=== PATIENT | male | born 1960 | race Caucasian/White ===

== ENCOUNTER 2018-01-18 18:36 | Emergency (ER) | payer OTHER ==
--- NOTE | 2018-01-19 00:43 | ER ---
HPI: A 57-year-old male here with concerns about his blood pressure being elevated. He has been checking it recently and he got a reading today in the 180s/120. The patient states he feels okay. He has had some mild occasional headaches, but did not think much of it, but now he is concerned that his blood pressure could be causing his headache. The patient is on medications for hypertension that include amlodipine 5 mg a day and Hyzaar 100/12.5 daily. He also takes a baby aspirin daily. The patient states he has been on these medications for a while. OBJECTIVE: GENERAL APPEARANCE: The patient is awake and alert. No obvious distress. VITAL SIGNS: Reviewed. Blood pressure checked here is 155/109. He is afebrile. Pulse is 77, respirations 18, O2 sats are 97%. Physical exam, lungs are clear to auscultation with good air exchange throughout the lung smart. CARDIAC: Heart sounds distinct. S1, S2 present. Regular rate. No murmurs. SKIN: Warm and dry. DIAGNOSIS: Hypertension, not well controlled. TREATMENT PLAN: We will treat the patient's medications, increase his Norvasc to 10 mg daily and increase his high Hyzaar to 100/25 mg one tablet daily. I want to see the patient back in 1 to 2 weeks for a recheck. He is instructed to come back to the clinic here in, but that he will be in this area for a few more weeks, vacationing and fishing. The patient agrees to follow up as discussed. He also is a smoker. He smokes up to one-half pack a day. I advised the patient that he really should consider quitting smoking, and he tells me that he will give it some thought. BRYNN/TEJ /[id number]
== END 2018-01-18 19:14 | disposition home or self-care (01) ==
LOC: LB.ED 18:36
DX: I10 Essential (primary) hypertension (principal)
CPT/HCPCS: 99283